=== PATIENT | male | born 1955 | race Two or more races ===

== ENCOUNTER 2018-01-03 09:39 | Inpatient (IN) | payer OTHER ==
[~2018-01-03] VITALS: Ht 185.4 cm; Wt 108.9 kg
[~2018-01-03 09:39] MED LIST: ATORVASTATIN CA40 MG; GABAPENTIN800 MG; GLIPIZIDE10 MG; KOMBIGLYZE XR1 EAC2; MEDROL4 MG PO; PROMETHAZINE W118 ML PO; SEROQUEL XR150 MG; TRICOR145 MG; ZESTRIL40 M1; ZITHROMAX PO
[2018-01-03] MEDS ORDERED: LANTUS SOL100 UNIT/1 (10:12)
[2018-01-06] MEDS ORDERED: XARELTO20 MG PO (16:28)
[2018-01-06] MEDS ORDERED: XARELTO15 MG PO (16:28)
== END 2018-01-06 16:58 | disposition home or self-care (01) | DRG 69 ==
LOC: ER 09:39 → MEDJ 18:36
PROC: B44HZZZ Ultrasonography of Bilateral Lower Extremity Arteries (ICD-10-PCS; principal; 2018-01-03)
PROC: BW28ZZZ Computerized Tomography (CT Scan) of Head (ICD-10-PCS; 2018-01-03)
PROC: B246ZZZ Ultrasonography of Right and Left Heart (ICD-10-PCS; 2018-01-04)
PROC: B345ZZZ Ultrasonography of Bilateral Common Carotid Arteries (ICD-10-PCS; 2018-01-04)
PROC: 3E0F7GC Introduction of Other Therapeutic Substance into Respiratory Tract, Via Natural or Artificial Opening (ICD-10-PCS; 2018-01-05)
DX: G45.8 Other transient cerebral ischemic attacks and related syndromes (principal); B20 Human immunodeficiency virus [HIV] disease; I82.412 Acute embolism and thrombosis of left femoral vein; R55 Syncope and collapse; E11.51 Type 2 diabetes mellitus with diabetic peripheral angiopathy without gangrene; E78.49 Other hyperlipidemia; I10 Essential (primary) hypertension; J44.9 Chronic obstructive pulmonary disease, unspecified; M79.662 Pain in left lower leg; Z72.0 Tobacco use

== ENCOUNTER 2018-08-29 08:18 | Outpatient (CLI) | payer OTHER ==
[~2018-08-29 08:18] MED LIST changes: +LANTUS SOL100 UNIT/1; +XARELTO15 MG PO; +XARELTO20 MG PO
== END 2018-08-29 08:20 | disposition home or self-care (01) ==
LOC: NUCLEAR 08:18
DX: I82.493 Acute embolism and thrombosis of other specified deep vein of lower extremity, bilateral (principal)

== ENCOUNTER 2023-08-04 05:12 | Emergency (ER) | payer OTHER ==
[~2023-08-04] VITALS: Ht 185.4 cm; Wt 117.9 kg
[2023-08-04] MEDS ORDERED: DEXAMETHASONE0.75 MG PO (05:39)
[2023-08-04] MEDS ORDERED: ATORVASTATIN CA10 MG PO (05:39)
[2023-08-04] MEDS ORDERED: ATRIPLA TABLET1 EACH PO (05:39)
[2023-08-04] MEDS ORDERED: QBRELIS1 MG/1 ML PO (05:40)
[2023-08-04] MEDS ORDERED: NEURONTIN300 MG PO (05:40)
[2023-08-04] MEDS ORDERED: GLUMETZA500 MG PO (05:40)
[2023-08-04] MEDS ORDERED: LANTUS SOL100 UNIT/1 SQ (05:40)
[2023-08-04] MEDS ORDERED: CARDURA1 MG PO (05:40)
[2023-08-04] MEDS ORDERED: METHYLPREDNISOLONE SOD SUCC 125 MG VIAL IV STA (08:14)
[2023-08-04] MEDS ORDERED: ALBUTEROL SULFATE 3 ML/2.5 MG AMPUL.NEB IH SCH (08:15)
[2023-08-04] MEDS ORDERED: 0.9 % SODIUM CHLORIDE 1,000 ML IV ONE (08:30)
[2023-08-04] MEDS ORDERED: METHYLPREDNISOLONE SOD SUCC 40 MG VIAL ONE (08:35)
[2023-08-04] MEDS ORDERED: ALBUTEROL SULFATE 3 ML/2.5 MG AMPUL.NEB IH ONE (08:51)
[2023-08-04 09:05] LABS: HEMATOCRIT 47.1 % (39.0-48.0); HEMOGLOBIN 15.8 g/dL (13-16.00); MEAN CELL VOLUME 94.4 fL (80.0-100.00); MEAN CORPUSCULAR HEMOGLOBIN 31.7 pg (27.00-32.0); MEAN CORPUSCULAR HGB CONC 33.6 g/dl (32.0-36.0); PLATELET COUNT 205 K/uL (150-450); RED BLOOD COUNT 4.98 M/uL (4.00-6.00); RED CELL DISTRIBUTION WIDTH 13.8 % (11.5-14.5)
[2023-08-04 09:26] LABS: URINE APPEARANCE Clear; URINE BILIRRUBIN Negative (NEGATIVE); URINE BLOOD Negative; URINE COLOR Yellow; URINE LEUKOCYTE Negative; URINE NITRATE Negative; URINE PROTEIN Negative (NEGATIVE)
[2023-08-04 09:28] LABS: URINE BACTERIA 11.3 uL (0.0-1933); URINE RBC 6.4 uL (0.0-20.8); URINE WBC 11.2 uL (0.0-23.2)
[2023-08-04 09:30] LABS: URINE EPITHELIAL CELLS 0.6 uL (0.0-38.8); URINE GLUCOSE >=1000 MG/DL (NEGATIVE)
[2023-08-04 09:58] LABS: INR 0.95; PARTIAL THROMBOPLASTIN TIME 29.9 SECONDS (22.0-34.0)
[2023-08-04 10:13] LABS: ALBUMIN 3.9 gm/dL (3.4-5.0); BILIRUBIN TOTAL 0.35 mg/dL (0.3-1.2); CALCIUM 9.5 mg/dL (8.5-10.1); CREATININE SERUM 1.04 mg/dL (0.70-1.30); GFR 71.45; POTASSIUM 4.14 mEq/L (3.5-5.1); TOTAL PROTEIN 7.9 gm/dL (6.4-8.2)
== END 2023-08-04 11:52 | disposition home or self-care (01) ==
LOC: ER 05:13
PROVIDERS: General Practice
DX: R55 Syncope and collapse (principal); I10 Essential (primary) hypertension; J45.909 Unspecified asthma, uncomplicated; Z20.822 Contact with and (suspected) exposure to COVID-19; S00.03XA Contusion of scalp, initial encounter; E11.9 Type 2 diabetes mellitus without complications; Z79.4 Long term (current) use of insulin
CPT/HCPCS: 36415; 70450; 71046; 93005; 94640; 96365; 96366; 99284; J3490; J7030

== ENCOUNTER 2023-09-30 05:19 | Emergency (ER) | payer OTHER ==
[~2023-09-30] VITALS: Ht 185.4 cm; Wt 108.9 kg
[~2023-09-30 05:19] MED LIST changes: +ATORVASTATIN CA10 MG PO; +ATRIPLA TABLET1 EACH PO; +CARDURA1 MG; +CARDURA1 MG PO; +COZAAR100 MG PO; +DEXAMETHASONE0.75 MG PO; +DICLOFENAC SODI75 MG PO; +GLUMETZA500 MG PO; +LANTUS SOL100 UNIT/1 SQ; +MELOXICAM15 MG PO; +METFORMIN HCL500 M3; +NEURONTIN300 MG PO; +NEURONTIN800 MG PO; +QBRELIS1 MG/1 ML PO
[2023-09-30] MEDS ORDERED: TRAMADOL HCL 50 MG TABLET PO STA (06:04)
[2023-09-30] MEDS ORDERED: CEFTRIAXONE SODIUM 1,000 MG VIAL IV STA (06:05)
[2023-09-30] MEDS ORDERED: NIFEDIPINE 10 MG CAPSULE PO STA (06:05)
[2023-09-30] MEDS ORDERED: CEFTRIAXONE SODIUM 1,000 MG VIAL ONE (06:10)
[2023-09-30] MEDS ORDERED: NIFEDIPINE 10 MG CAPSULE PO ONE (06:10)
[2023-09-30 07:04] LABS: HEMATOCRIT 46.6 % (39.0-48.0); HEMOGLOBIN 15.8 g/dL (13-16.00); MEAN CELL VOLUME 94.8 fL (80.0-100.00); MEAN CORPUSCULAR HEMOGLOBIN 32.2 pg (27.00-32.0); PLATELET COUNT 192 K/uL (150-450); RED BLOOD COUNT 4.91 M/uL (4.00-6.00); RED CELL DISTRIBUTION WIDTH 13.2 % (11.5-14.5)
[2023-09-30 07:05] LABS: CREATININE SERUM 0.98 mg/dL (0.70-1.30); GFR 76.52; POTASSIUM 4.04 mEq/L (3.5-5.1)
[2023-09-30] MEDS ORDERED: AMOX-CLAV 875-1 EACH PO (07:47)
[2023-09-30] MEDS ORDERED: TRAMADOL HCL50 MG PO (07:47)
== END 2023-09-30 07:57 ==
LOC: ER 05:20
PROVIDERS: General Practice
DX: K08.89 Other specified disorders of teeth and supporting structures (principal); I10 Essential (primary) hypertension; E11.9 Type 2 diabetes mellitus without complications; Z79.84 Long term (current) use of oral hypoglycemic drugs
CPT/HCPCS: 36415; 96365; 99282; J0696

== ENCOUNTER 2024-03-11 05:27 | Emergency (ER) | payer OTHER ==
[~2024-03-11] VITALS: Ht 185.4 cm; Wt 108.9 kg
[~2024-03-11 05:27] MED LIST changes: +AMOX-CLAV 875-1 EACH PO; +TRAMADOL HCL50 MG PO
[2024-03-11] MEDS ORDERED: MEPERIDINE HCL/PF 50 MG/ML VIAL IM STA (06:24)
[2024-03-11] MEDS ORDERED: 0.9 % SODIUM CHLORIDE 1,000 ML IV STA (06:24)
[2024-03-11] MEDS ORDERED: PROMETHAZINE HCL 50 MG/ML AMPUL IM STA (06:25)
[2024-03-11] MEDS ORDERED: PROMETHAZINE HCL 50 MG/ML AMPUL IM ONE (06:29)
[2024-03-11 07:33] LABS: HEMATOCRIT 47.2 % (39.0-48.0); HEMOGLOBIN 16.1 g/dL (13-16.00); MEAN CORPUSCULAR HEMOGLOBIN 32.1 pg (27.00-32.0); MEAN CORPUSCULAR HGB CONC 34.1 g/dl (32.0-36.0); PLATELET COUNT 231 K/uL (150-450); RED BLOOD COUNT 5.02 M/uL (4.00-6.00); RED CELL DISTRIBUTION WIDTH 13.9 % (11.5-14.5)
[2024-03-11 07:49] LABS: ALBUMIN 3.4 gm/dL (3.4-5.0); BILIRUBIN TOTAL 0.41 mg/dL (0.3-1.2); CALCIUM 9.2 mg/dL (8.5-10.1); CREATININE SERUM 0.85 mg/dL (0.70-1.30); GFR 90.18; POTASSIUM 3.7 mEq/L (3.5-5.1); TOTAL PROTEIN 7.4 gm/dL (6.4-8.2)
[2024-03-11 07:50] LABS: INR 1.05; PARTIAL THROMBOPLASTIN TIME 28.8 SECONDS (22.0-34.0); PROTHROMBIN TIME 11.4 SECONDS (9.0-11.5)
[2024-03-11] MEDS ORDERED: METRONIDAZOLE500 MG PO (09:55)
[2024-03-11] MEDS ORDERED: ZOFRAN8 MG PO (09:55)
[2024-03-11] MEDS ORDERED: CIPRO500 MG PO (09:55)
[2024-03-11] MEDS ORDERED: PEPCID AC20 MG PO (09:55)
[2024-03-11] MEDS ORDERED: KETO10TA2 PO (09:55)
[2024-03-11 11:08] LABS: PH,URINE 8.5 (5.0-8.0); URINE APPEARANCE Clear; URINE BILIRRUBIN Negative (NEGATIVE); URINE BLOOD Negative; URINE COLOR Yellow; URINE GLUCOSE Negative (NEGATIVE); URINE KETONE Negative (NEGATIVE); URINE LEUKOCYTE Negative; URINE NITRATE Negative; URINE PROTEIN Trace (NEGATIVE); URINE UROBILINOGEN 0.2 E.U./dl
[2024-03-11 11:11] LABS: URINE BACTERIA 45.2 uL (0.0-1933); URINE EPITHELIAL CELLS 1.8 uL (0.0-38.8); URINE RBC 3.8 uL (0.0-20.8); URINE WBC 7.8 uL (0.0-23.2)
== END 2024-03-11 11:23 | disposition home or self-care (01) ==
LOC: ER 05:30
DX: K57.90 Diverticulosis of intestine, part unspecified, without perforation or abscess without bleeding (principal); K42.9 Umbilical hernia without obstruction or gangrene; N28.1 Cyst of kidney, acquired; N40.0 Benign prostatic hyperplasia without lower urinary tract symptoms; I70.8 Atherosclerosis of other arteries; I10 Essential (primary) hypertension; E11.9 Type 2 diabetes mellitus without complications; Z79.4 Long term (current) use of insulin; Z79.84 Long term (current) use of oral hypoglycemic drugs
CPT/HCPCS: 36415; 74176; 96365; 96372; 99283; J2250; J3490

== ENCOUNTER 2024-03-20 15:32 | Outpatient (CLI) | payer OTHER ==
[~2024-03-20 15:32] MED LIST changes: +CIPRO500 MG PO; +KETO10TA2 PO; +METRONIDAZOLE500 MG PO; +PEPCID AC20 MG PO; +ZOFRAN8 MG PO
== END 2024-03-20 15:35 | disposition home or self-care (01) ==
LOC: LAB 15:32
PROVIDERS: ATTEND Internal Medicine Hematology & Oncology
DX: E27.1 Primary adrenocortical insufficiency (principal); C18.0 Malignant neoplasm of cecum; D44.12 Neoplasm of uncertain behavior of left adrenal gland

== ENCOUNTER 2024-04-04 10:34 | Outpatient (CLI) | payer OTHER | END 2024-04-04 10:37 | disposition home or self-care (01) | LOC: SONOGRAMA 10:34 | PROVIDERS: ATTEND Internal Medicine Hematology & Oncology | DX: D44.12 Neoplasm of uncertain behavior of left adrenal gland (principal) ==

== ENCOUNTER 2024-04-11 06:41 | Outpatient (CLI) | payer OTHER ==
[2024-04-11 07:22] LABS: URINE APPEARANCE Clear; URINE BILIRRUBIN Negative (NEGATIVE); URINE BLOOD Negative; URINE COLOR Yellow; URINE KETONE Negative (NEGATIVE); URINE LEUKOCYTE Negative; URINE NITRATE Negative; URINE PROTEIN Trace (NEGATIVE); URINE UROBILINOGEN 0.2 E.U./dl
[2024-04-11 07:26] LABS: HEMATOCRIT 50.1 % (39.0-48.0); HEMOGLOBIN 16.3 g/dL (13-16.00); MEAN CELL VOLUME 95.6 fL (80.0-100.00); MEAN CORPUSCULAR HEMOGLOBIN 31.1 pg (27.00-32.0); MEAN CORPUSCULAR HGB CONC 32.5 g/dl (32.0-36.0); PLATELET COUNT 235 K/uL (150-450); RED BLOOD COUNT 5.24 M/uL (4.00-6.00); RED CELL DISTRIBUTION WIDTH 13.7 % (11.5-14.5)
[2024-04-11 07:26] LABS: URINE RBC 4.4 uL (0.0-20.8); URINE WBC 2.1 uL (0.0-23.2)
[2024-04-11 07:33] LABS: URINE BACTERIA 3.6 uL (0.0-1933); URINE CAST 0.14 uL (0.0-1.40); URINE EPITHELIAL CELLS 0.7 uL (0.0-38.8); URINE GLUCOSE 250 MG/DL (NEGATIVE)
[2024-04-11 07:47] LABS: CREATININE URINE 47.4 MG/DL; URINE PROT QUANT 24HR 12.1 MG/DL
[2024-04-11 07:53] LABS: URINE PROT QUANT 24 HR 229.9 MG/24HR (42-225)
[2024-04-11 09:36] LABS: ALBUMIN 3.7 gm/dL (3.4-5.0); CALCIUM 9.5 mg/dL (8.5-10.1); CREATININE SERUM 0.86 mg/dL (0.70-1.30); GFR 88.97; POTASSIUM 4.45 mEq/L (3.5-5.1); URIC ACID 2.9 mg/dL (3.5-8.5)
[2024-04-11 10:08] LABS: CREATINE CLEARANCE 72.9 ML/MIN (97-137); CREATININE SERUM 0.86 mg/dL (0.8-1.3)
== END 2024-04-11 06:42 | disposition home or self-care (01) ==
LOC: LAB 06:41
PROVIDERS: ATTEND Specialist/Technologist, Other Nephrology
DX: N18.30 Chronic kidney disease, stage 3 unspecified (principal); E11.21 Type 2 diabetes mellitus with diabetic nephropathy; D63.1 Anemia in chronic kidney disease; N30.00 Acute cystitis without hematuria; E78.5 Hyperlipidemia, unspecified; E03.9 Hypothyroidism, unspecified